=== PATIENT | female | born 1955 ===

== ENCOUNTER 2023-08-25 07:00 | Day surgery (SDC) | payer OTHER ==
[~2023-08-25] VITALS: Ht 157.5 cm; Wt 71.2 kg
[~2023-08-25 07:00] MED LIST: CHILDREN'S ASPI81 MG PO; LIVALO2 MG PO; LOSARTAN-HCTZ1 EACH PO; PEPCID AC10 MG PO; TOPROL XL50 M1 PO
[2023-08-25] MEDS ORDERED: POVIDONE-IODINE 118 ML BOTT TOP ONE (10:37)
[2023-08-25] MEDS ORDERED: CHLORHEXIDINE GLUCONATE 120 ML BOTTLE TOP ONE ×2 (10:42→12:15)
[2023-08-25] MEDS ORDERED: IBU600 MG PO (12:10)
== END 2023-08-25 15:00 | disposition home or self-care (01) ==
LOC: CIR.AMB 07:00
PROVIDERS: ATTEND Obstetrics & Gynecology Gynecology
DX: N84.0 Polyp of corpus uteri (principal); D25.9 Leiomyoma of uterus, unspecified; Z91.041 Radiographic dye allergy status; Z20.822 Contact with and (suspected) exposure to COVID-19